=== PATIENT | male | born 2005 ===

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

== ENCOUNTER 2023-10-26 16:21 | Outpatient (REF) | payer MEDICAID, SELFPAY ==
[2023-10-26 21:35] LABS: Abs Immature Grans 0.01 10^3/uL (0.0-0.06); Absolute Basophil Count 0.04 10^3/uL (0.0-0.2); Absolute Eosinophil Count 0.08 10^3/uL (0.0-0.7); Absolute Lymphocyte Count 1.99 10^3/uL (1.2-3.4); Absolute Monocyte Count 0.45 10^3/uL (0.1-0.8); Absolute Neutrophil Count 2.34 10^3/uL (1.2-6.7); Basophils % 0.8 %; Eosinophils % 1.6 %; HCT 46.9 % (40.0-50.0); Immature Grans % 0.2 %; Lymphocytes % 40.5 %; MCH 27.9 pg (27.0-33.0); MCV 87 fL (80-95); MPV 12.2 fL (8.0-11.0); Monocytes % 9.2 %; Neutrophils % 47.7 %; Platelet Count 256 10^3/uL (130-400); RBC 5.38 10^6/uL (4.36-5.78); RDW 13.2 % (11.8-14.1); RDW-SD 41.7 fL; WBC 4.91 10^3/uL (4.4-10.8)
[2023-10-26 21:52] LABS: ALT 23 U/L (16-63); AST 15 U/L (15-37); Albumin 4.3 g/dL (3.4-5.0); Alkaline Phosphatase 61 U/L (46-116); Anion Gap 5.5 mmol/L (3-11); BUN 14 mg/dL (7-18); Bilirubin, Total 0.4 mg/dL (0.2-1.0); CO2 29.5 mmol/L (21.0-32.0); CREATININE 0.9 mg/dL (0.70-1.30); Calcium 9.1 mg/dL (8.5-10.1); Chloride 105 mmol/L (98-107); Estimated GFR 125.39 (mL/min/1.73m2); Glucose 86 mg/dL (74-106); Potassium 4.3 mmol/L (3.5-5.1); Sodium 140 mmol/L (136-145); TSH (W/Ref FT4) 1.33 uIU/mL (0.36-3.74); Total Protein 7.8 g/dL (6.4-8.2)
[2023-10-30 14:05] LABS: IgA 148 mg/dL (85-499); Interpretation (See Note); Tissue Transglutaminase IgA <4.0 CU (<20.0)
== END 2023-10-26 16:22 | disposition home or self-care (01) ==
LOC: NCHCN 16:21
PROVIDERS: Visit Provider Family Medicine
DX: R10.9 Unspecified abdominal pain (principal)
CPT/HCPCS: 80053; 82784; 83516; 84443; 85025